=== PATIENT | female | born 1965 | race Caucasian/White ===

== ENCOUNTER 2018-04-03 23:43 | Inpatient (IN) | payer BC, OTHER ==
[2018-04-04] MEDS ORDERED: BISACODYL (EC) 5 MG TAB PO (01:00)
[2018-04-04] MEDS ORDERED: NITROGLYCERIN 50 MG/D5W (PMX) 250 ML IV (01:30)
[2018-04-04] MEDS ORDERED: HEPARIN 1000 UNITS/ML 10 ML INJ IV ×3 (01:30→14:00)
[2018-04-04] MEDS: ONDANSETRON 4 MG INJ IV ×3 (01:43→19:35)
[2018-04-04 02:19] LABS: ADD MAN DIFF? NO
[2018-04-04] MEDS ORDERED: HEPARIN 25000 UNITS/250 ML 250 ML (02:21)
[2018-04-04 02:22] LABS: BASOPHILS % 0.3 % (0.0-2.0); EOSINOPHILS % 0.2 % (0.0-7.0); HEMATOCRIT 42.7 % (37.0-47.0); HEMOGLOBIN 14.2 g/dl (12.0-16.0); IMMATURE GRANS #M 0.03 10^3/ul; IMMATURE GRANS % (M) 0.3 %; LYMPHOCYTES # 1.5 10^3/ul (0.8-2.9); LYMPHOCYTES % 15.2 % (15.0-51.0); MEAN CORPUSCULAR HEMOGLOBIN 31.7 pg (29.0-33.0); MEAN CORPUSCULAR HGB CONC 33.3 g/dl (32.0-37.0); MEAN CORPUSCULAR VOLUME 95.3 fl (82.0-101.0); MEAN PLATELET VOLUME 10.2 fl (7.4-10.4); MONOCYTE # 0.6 10^3/ul (0.3-0.9); MONOCYTES % 6.1 % (0.0-11.0); NEUTROPHIL # 7.8 10^3/ul (1.6-7.5); NEUTROPHILS % 77.9 % (39.0-77.0); PLATELET COUNT 267 10^3/UL (140-415); RED BLOOD COUNT 4.48 10^6/ul (4.20-5.40); RED CELL DISTRIBUTION WIDTH 13.1 % (11.5-14.5)
[2018-04-04] MEDS: HEPARIN 25000 UNITS/250 ML 250 ML IV ×2 (02:32→19:00)
[2018-04-04 02:41] LABS: PARTIAL THROMBOPLASTIN TIME 27.5 Sec (25.0-35.0)
[2018-04-04 02:41] LABS: INR 0.93; PROTIME 12.5 Sec (11.9-14.9)
[2018-04-04 03:01] LABS: ALANINE AMINOTRANSFERASE 35 IU/L (13-69); ALBUMIN 4.6 g/dl (3.3-4.9); ALBUMIN/GLOBULIN RATIO 1.35; ALKALINE PHOSPHATASE 79 IU/L (42-121); ANION GAP 16 (8-16); ASPARTATE AMINO TRANSFERASE 77 IU/L (15-46); BILIRUBIN,INDIRECT 0.3 mg/dl (0-1.1); BILIRUBIN,TOTAL 0.3 mg/dl (0.2-1.3); BLOOD UREA NITROGEN 9 mg/dl (7-20); CALCIUM 9.7 mg/dl (8.4-10.2); CARBON DIOXIDE 26 mmol/L (21-31); CHLORIDE 104 mmol/L (97-110); CREATININE 0.49 mg/dl (0.44-1.00); GLUCOSE 130 mg/dl (70-220); MAGNESIUM 1.8 mg/dl (1.7-2.5); POTASSIUM 3.3 mmol/L (3.5-5.1); SODIUM 143 mmol/L (135-144)
[2018-04-04] MEDS: NITROGLYCERIN (SL) 0.4 MG TAB SL ×2 (03:43→03:51)
[2018-04-04] MEDS: POTASSIUM CHLORIDE 50 ML IVPB (03:48)
[2018-04-04] MEDS: POTASSIUM CHLORIDE (SR) 20 MEQ TAB PO ×2 (04:42→11:39)
[2018-04-04] MEDS: PANTOPRAZOLE 40 MG INJ IV (05:41)
[2018-04-04] MEDS ORDERED: IODIXANOL LOCM 100 ML BTL ×2 (07:45→08:01)
[2018-04-04] MEDS ORDERED: HEPARIN 1000 UNITS/ML 10 ML INJ (07:45)
[2018-04-04] MEDS ORDERED: LIDOCAINE 1% (MDV) 20 ML INJ (07:45)
[2018-04-04] MEDS ORDERED: FENTAnyl 50 MCG/ML VIAL (07:45)
[2018-04-04] MEDS ORDERED: MIDAZOLAM 1 MG/ML 2 ML INJ (07:46)
[2018-04-04] MEDS ORDERED: NITROGLYCERIN (IC) 100 MCG/ML INJ (07:46)
[2018-04-04] MEDS ORDERED: VERAPAMIL 5 MG INJ (07:46)
[2018-04-04] MEDS ORDERED: BIVALIRUDIN 250MG /NS 50 ML 50 ML IVPB (08:06)
[2018-04-04] MEDS ORDERED: ASPIRIN 325 MG TAB (08:07)
[2018-04-04] MEDS ORDERED: TICAGRELOR 90 MG TABLET (08:07)
[2018-04-04] MEDS ORDERED: NITROGLYCERIN 2% 1 GM OINT PKT TD (09:00)
[2018-04-04] MEDS: METOPROLOL (XL) 25 MG TAB PO ×2 (09:00→17:22)
[2018-04-04] MEDS ORDERED: ASPIRIN (EC) 325 MG TAB PO (09:00)
[2018-04-04] MEDS: HOLD all METFORMIN and METFORMIN CONTAINING medications for 48 hours post procedure. Chec XX (09:00)
[2018-04-04] MEDS ORDERED: HYDROCODONE/APAP (10/325) TAB PO (09:30)
[2018-04-04] MEDS: AMLODIPINE 10 MG TAB PO (09:55)
[2018-04-04] MEDS: BENAZEPRIL 10 MG TAB PO (09:55)
[2018-04-04] MEDS: SOD CHLORIDE 0.9% 1,000 ML IV (09:56)
[2018-04-04] MEDS: ISOSORBIDE MONONITRATE(SR)60 MG TAB PO (09:56)
[2018-04-04] MEDS: morphine 2 MG INJ IV ×2 (10:21→19:35)
[2018-04-04 11:19] LABS: ADD MAN DIFF? NO
[2018-04-04 11:21] LABS: BASOPHILS % 0.2 % (0.0-2.0); EOSINOPHILS % 0.1 % (0.0-7.0); HEMATOCRIT 42.2 % (37.0-47.0); HEMOGLOBIN 14.1 g/dl (12.0-16.0); IMMATURE GRANS #M 0.02 10^3/ul; IMMATURE GRANS % (M) 0.2 %; LYMPHOCYTES # 1.3 10^3/ul (0.8-2.9); LYMPHOCYTES % 14.6 % (15.0-51.0); MEAN CORPUSCULAR HEMOGLOBIN 31.4 pg (29.0-33.0); MEAN CORPUSCULAR HGB CONC 33.4 g/dl (32.0-37.0); MEAN PLATELET VOLUME 10.1 fl (7.4-10.4); MONOCYTE # 0.6 10^3/ul (0.3-0.9); MONOCYTES % 6.4 % (0.0-11.0); NEUTROPHIL # 6.7 10^3/ul (1.6-7.5); NEUTROPHILS % 78.5 % (39.0-77.0); PLATELET COUNT 249 10^3/UL (140-415); RED BLOOD COUNT 4.49 10^6/ul (4.20-5.40); RED CELL DISTRIBUTION WIDTH 13.2 % (11.5-14.5)
[2018-04-04 11:21] LABS: WHITE BLOOD COUNT 8.6 10^3/ul (4.8-10.8)
[2018-04-04 11:49] LABS: INR 0.95; PROTIME 12.8 Sec (11.9-14.9)
[2018-04-04 11:50] LABS: PARTIAL THROMBOPLASTIN TIME 32.9 Sec (25.0-35.0)
[2018-04-04] MEDS: HEPARIN 1000 UNITS/ML 10 ML INJ IV (14:00)
[2018-04-04] MEDS: CEPHALEXIN 500 MG CAP PO ×2 (14:57→21:13)
[2018-04-04 18:11] LABS: INR 0.94; PROTIME 12.7 Sec (11.9-14.9)
[2018-04-04] MEDS: ATORVASTATIN 20 MG TAB PO (21:14)
[2018-04-05 01:20] LABS: PARTIAL THROMBOPLASTIN TIME 51.1 Sec (25.0-35.0)
[2018-04-05] MEDS: ACETAMINOPHEN 325 MG TAB PO ×2 (04:47→11:33)
[2018-04-05 05:15] LABS: ADD MAN DIFF? NO
[2018-04-05] MEDS: PANTOPRAZOLE 40 MG INJ IV (05:20)
[2018-04-05] MEDS: CEPHALEXIN 500 MG CAP PO ×3 (05:22→20:48)
[2018-04-05 05:23] LABS: WHITE BLOOD COUNT 8.8 10^3/ul (4.8-10.8)
[2018-04-05 05:23] LABS: BASOPHILS % 0.3 % (0.0-2.0); EOSINOPHILS % 0.2 % (0.0-7.0); HEMATOCRIT 39.9 % (37.0-47.0); HEMOGLOBIN 13.3 g/dl (12.0-16.0); IMMATURE GRANS #M 0.01 10^3/ul; IMMATURE GRANS % (M) 0.1 %; LYMPHOCYTES % 23.3 % (15.0-51.0); MEAN CORPUSCULAR HGB CONC 33.3 g/dl (32.0-37.0); MEAN CORPUSCULAR VOLUME 96.1 fl (82.0-101.0); MEAN PLATELET VOLUME 10.3 fl (7.4-10.4); MONOCYTE # 0.7 10^3/ul (0.3-0.9); MONOCYTES % 7.5 % (0.0-11.0); NEUTROPHILS % 68.6 % (39.0-77.0); PLATELET COUNT 243 10^3/UL (140-415); RED BLOOD COUNT 4.15 10^6/ul (4.20-5.40); RED CELL DISTRIBUTION WIDTH 13.3 % (11.5-14.5)
[2018-04-05 05:39] LABS: ALANINE AMINOTRANSFERASE 30 IU/L (13-69); ALBUMIN/GLOBULIN RATIO 1.33; ALKALINE PHOSPHATASE 77 IU/L (42-121); ANION GAP 13 (8-16); ASPARTATE AMINO TRANSFERASE 60 IU/L (15-46); BILIRUBIN,INDIRECT 0.4 mg/dl (0-1.1); BILIRUBIN,TOTAL 0.4 mg/dl (0.2-1.3); BLOOD UREA NITROGEN 8 mg/dl (7-20); CALCIUM 9.4 mg/dl (8.4-10.2); CARBON DIOXIDE 25 mmol/L (21-31); CHLORIDE 108 mmol/L (97-110); CREATININE 0.52 mg/dl (0.44-1.00); GLUCOSE 115 mg/dl (70-220); POTASSIUM 4.1 mmol/L (3.5-5.1); SODIUM 142 mmol/L (135-144)
[2018-04-05 06:44] LABS: PHOSPHORUS 3.8 mg/dl (2.5-4.9)
[2018-04-05 06:44] LABS: MAGNESIUM 1.9 mg/dl (1.7-2.5)
[2018-04-05] MEDS: HOLD all METFORMIN and METFORMIN CONTAINING medications for 48 hours post procedure. Chec XX (09:00)
[2018-04-05] MEDS: CLOPIDOGREL 75 MG TAB PO (09:00)
[2018-04-05] MEDS: ASPIRIN 81 MG TAB PO (09:00)
[2018-04-05] MEDS: BENAZEPRIL 10 MG TAB PO (09:02)
[2018-04-05] MEDS: AMLODIPINE 10 MG TAB PO (09:02)
[2018-04-05] MEDS: ISOSORBIDE MONONITRATE(SR)60 MG TAB PO ×2 (09:03→16:22)
[2018-04-05] MEDS: METOPROLOL (XL) 25 MG TAB PO (09:03)
[2018-04-05] MEDS: ONDANSETRON 4 MG INJ IV (11:34)
[2018-04-05] MEDS ORDERED: IBUPROFEN 400 MG TAB PO (12:00)
[2018-04-05] MEDS: morphine 2 MG INJ IV ×2 (14:19→20:02)
[2018-04-05] MEDS: NITROGLYCERIN (SL) 0.4 MG TAB SL ×3 (14:26→14:52)
[2018-04-05] MEDS ORDERED: HEPARIN 1000 UNITS/ML 10 ML INJ IV (16:00)
[2018-04-05 16:24] LABS: ADD MAN DIFF? NO
[2018-04-05 16:25] LABS: WHITE BLOOD COUNT 7.5 10^3/ul (4.8-10.8)
[2018-04-05 16:25] LABS: BASOPHILS % 0.4 % (0.0-2.0); EOSINOPHILS % 0.5 % (0.0-7.0); HEMATOCRIT 39.3 % (37.0-47.0); HEMOGLOBIN 13.2 g/dl (12.0-16.0); IMMATURE GRANS #M 0.01 10^3/ul; IMMATURE GRANS % (M) 0.1 %; LYMPHOCYTES # 1.7 10^3/ul (0.8-2.9); LYMPHOCYTES % 22.8 % (15.0-51.0); MEAN CORPUSCULAR HEMOGLOBIN 32.5 pg (29.0-33.0); MEAN CORPUSCULAR HGB CONC 33.6 g/dl (32.0-37.0); MEAN CORPUSCULAR VOLUME 96.8 fl (82.0-101.0); MEAN PLATELET VOLUME 10.2 fl (7.4-10.4); MONOCYTE # 0.7 10^3/ul (0.3-0.9); MONOCYTES % 8.9 % (0.0-11.0); NEUTROPHILS % 67.3 % (39.0-77.0); PLATELET COUNT 233 10^3/UL (140-415); RED BLOOD COUNT 4.06 10^6/ul (4.20-5.40); RED CELL DISTRIBUTION WIDTH 13.2 % (11.5-14.5)
[2018-04-05] MEDS: HEPARIN 1000 UNITS/ML 10 ML INJ IV (16:35)
[2018-04-05] MEDS: HEPARIN 25000 UNITS/250 ML 250 ML IV (16:37)
[2018-04-05 16:44] LABS: INR 0.93; PROTIME 12.6 Sec (11.9-14.9)
[2018-04-05 16:45] LABS: PARTIAL THROMBOPLASTIN TIME 23.5 Sec (25.0-35.0)
[2018-04-05 23:46] LABS: PARTIAL THROMBOPLASTIN TIME 56.2 Sec (25.0-35.0)
[2018-04-06] MEDS: morphine 2 MG INJ IV ×4 (00:08→13:24)
[2018-04-06] MEDS: PANTOPRAZOLE 40 MG INJ IV (05:10)
[2018-04-06] MEDS: CEPHALEXIN 500 MG CAP PO ×3 (05:10→21:09)
[2018-04-06 05:32] LABS: ADD MAN DIFF? NO
[2018-04-06 05:42] LABS: BASOPHILS % 0.4 % (0.0-2.0); EOSINOPHILS # 0.1 10^3/ul (0.0-0.5); EOSINOPHILS % 1.2 % (0.0-7.0); HEMATOCRIT 39.8 % (37.0-47.0); HEMOGLOBIN 12.8 g/dl (12.0-16.0); IMMATURE GRANS #M 0.02 10^3/ul; IMMATURE GRANS % (M) 0.3 %; LYMPHOCYTES # 2.4 10^3/ul (0.8-2.9); LYMPHOCYTES % 34.6 % (15.0-51.0); MEAN CORPUSCULAR HEMOGLOBIN 31.4 pg (29.0-33.0); MEAN CORPUSCULAR HGB CONC 32.2 g/dl (32.0-37.0); MEAN CORPUSCULAR VOLUME 97.8 fl (82.0-101.0); MEAN PLATELET VOLUME 10.5 fl (7.4-10.4); MONOCYTE # 0.7 10^3/ul (0.3-0.9); MONOCYTES % 9.6 % (0.0-11.0); NEUTROPHIL # 3.7 10^3/ul (1.6-7.5); NEUTROPHILS % 53.9 % (39.0-77.0); PLATELET COUNT 226 10^3/UL (140-415); RED BLOOD COUNT 4.07 10^6/ul (4.20-5.40); RED CELL DISTRIBUTION WIDTH 13.4 % (11.5-14.5)
[2018-04-06 05:42] LABS: WHITE BLOOD COUNT 6.9 10^3/ul (4.8-10.8)
[2018-04-06 06:02] LABS: PARTIAL THROMBOPLASTIN TIME 51.5 Sec (25.0-35.0)
[2018-04-06 06:04] LABS: ANION GAP 11 (8-16); BLOOD UREA NITROGEN 10 mg/dl (7-20); CALCIUM 9.4 mg/dl (8.4-10.2); CARBON DIOXIDE 26 mmol/L (21-31); CHLORIDE 107 mmol/L (97-110); CREATININE 0.54 mg/dl (0.44-1.00); GLUCOSE 106 mg/dl (70-220); SODIUM 140 mmol/L (135-144)
[2018-04-06] MEDS: ONDANSETRON 4 MG INJ IV (09:15)
[2018-04-06] MEDS: BENAZEPRIL 10 MG TAB PO (09:16)
[2018-04-06] MEDS: METOPROLOL (XL) 25 MG TAB PO (09:16)
[2018-04-06] MEDS: AMLODIPINE 10 MG TAB PO (09:16)
[2018-04-06] MEDS: CLOPIDOGREL 75 MG TAB PO (09:16)
[2018-04-06] MEDS: ASPIRIN 81 MG TAB PO (09:16)
[2018-04-06] MEDS: ISOSORBIDE MONONITRATE(SR)60 MG TAB PO (09:17)
[2018-04-06] MEDS: LORAZEPAM 2 MG INJ IV ×2 (12:02→21:16)
[2018-04-06 12:39] LABS: PARTIAL THROMBOPLASTIN TIME 49.8 Sec (25.0-35.0)
[2018-04-06] MEDS: traMADol 50 MG TAB PO (16:41)
[2018-04-06] MEDS: HEPARIN 25000 UNITS/250 ML 250 ML IV ×2 (19:29→21:24)
[2018-04-06 20:27] LABS: PARTIAL THROMBOPLASTIN TIME 87.7 Sec (25.0-35.0)
[2018-04-07] MEDS: PANTOPRAZOLE 40 MG INJ IV (05:18)
[2018-04-07] MEDS: CEPHALEXIN 500 MG CAP PO ×3 (05:18→21:40)
[2018-04-07 06:09] LABS: ANION GAP 12 (8-16); BLOOD UREA NITROGEN 9 mg/dl (7-20); CALCIUM 9.2 mg/dl (8.4-10.2); CARBON DIOXIDE 26 mmol/L (21-31); CHLORIDE 105 mmol/L (97-110); CREATININE 0.57 mg/dl (0.44-1.00); GLUCOSE 97 mg/dl (70-220); POTASSIUM 3.9 mmol/L (3.5-5.1); SODIUM 139 mmol/L (135-144)
[2018-04-07] MEDS: ONDANSETRON 4 MG INJ IV ×2 (06:38→14:59)
[2018-04-07] MEDS: traMADol 50 MG TAB PO ×3 (06:38→22:03)
[2018-04-07 08:05] LABS: PARTIAL THROMBOPLASTIN TIME 78.5 Sec (25.0-35.0)
[2018-04-07] MEDS: ASPIRIN 81 MG TAB PO (08:18)
[2018-04-07] MEDS: ISOSORBIDE MONONITRATE(SR)60 MG TAB PO (08:19)
[2018-04-07] MEDS: CLOPIDOGREL 75 MG TAB PO (08:19)
[2018-04-07] MEDS: AMLODIPINE 10 MG TAB PO (09:00)
[2018-04-07] MEDS: BENAZEPRIL 10 MG TAB PO (09:00)
[2018-04-07] MEDS: METOPROLOL (XL) 25 MG TAB PO (09:00)
[2018-04-07] MEDS: ACETAMINOPHEN 325 MG TAB PO (11:00)
[2018-04-07 14:23] LABS: PARTIAL THROMBOPLASTIN TIME 58.5 Sec (25.0-35.0)
[2018-04-07] MEDS: morphine 2 MG INJ IV (15:00)
[2018-04-07] MEDS: NITROGLYCERIN (SL) 0.4 MG TAB SL (20:21)
[2018-04-07] MEDS: LORAZEPAM 2 MG INJ IV (22:11)
[2018-04-08] MEDS: LORAZEPAM 2 MG INJ IV ×4 (03:24→23:33)
[2018-04-08] MEDS: PANTOPRAZOLE 40 MG INJ IV (05:12)
[2018-04-08] MEDS: CEPHALEXIN 500 MG CAP PO ×3 (05:12→22:12)
[2018-04-08] MEDS: CLOPIDOGREL 75 MG TAB PO (08:50)
[2018-04-08] MEDS: ASPIRIN 81 MG TAB PO (08:50)
[2018-04-08] MEDS: METOPROLOL (XL) 25 MG TAB PO (08:51)
[2018-04-08] MEDS: ISOSORBIDE MONONITRATE(SR)60 MG TAB PO (08:51)
[2018-04-08] MEDS: traMADol 50 MG TAB PO (08:52)
[2018-04-08] MEDS: ONDANSETRON 4 MG INJ IV ×2 (08:52→15:05)
[2018-04-08] MEDS: ACETAMINOPHEN 325 MG TAB PO (16:39)
[2018-04-08] MEDS: morphine 2 MG INJ IV (21:51)
[2018-04-09] MEDS: PANTOPRAZOLE 40 MG INJ IV (05:13)
[2018-04-09] MEDS: CEPHALEXIN 500 MG CAP PO ×3 (05:13→20:42)
[2018-04-09] MEDS: CLOPIDOGREL 75 MG TAB PO (08:58)
[2018-04-09] MEDS: ISOSORBIDE MONONITRATE(SR)60 MG TAB PO (08:58)
[2018-04-09] MEDS: METOPROLOL (XL) 25 MG TAB PO (08:58)
[2018-04-09] MEDS: ASPIRIN 81 MG TAB PO (08:58)
[2018-04-09] MEDS: LORAZEPAM 2 MG INJ IV ×3 (08:59→21:39)
[2018-04-09] MEDS: morphine LIQ (10 MG/5 ML) CUP PO ×3 (11:50→20:43)
[2018-04-10] MEDS: PANTOPRAZOLE 40 MG INJ IV (05:53)
[2018-04-10] MEDS: CEPHALEXIN 500 MG CAP PO ×3 (05:53→21:39)
[2018-04-10] MEDS: CLOPIDOGREL 75 MG TAB PO (09:43)
[2018-04-10] MEDS: ASPIRIN 81 MG TAB PO (09:43)
[2018-04-10] MEDS: ISOSORBIDE MONONITRATE(SR)60 MG TAB PO (09:44)
[2018-04-10] MEDS: morphine LIQ (10 MG/5 ML) CUP PO (09:44)
[2018-04-10] MEDS: METOPROLOL (XL) 25 MG TAB PO (09:44)
[2018-04-10] MEDS: LORAZEPAM 2 MG INJ IV ×3 (10:44→22:46)
[2018-04-10 18:13] LABS: CHOLESTEROL 116 mg/dl (100-200)
[2018-04-10 18:13] LABS: HDL CHOLESTEROL 29 mg/dl (37-92); LDL CHOLESTEROL,CALCULATED 51 mg/dl; TRIGLYCERIDES 178 mg/dl (0-149)
[2018-04-10] MEDS: ONDANSETRON 4 MG INJ IV (19:39)
[2018-04-11] MEDS: CEPHALEXIN 500 MG CAP PO ×2 (05:47→14:50)
[2018-04-11] MEDS: PANTOPRAZOLE 40 MG INJ IV (05:47)
[2018-04-11] MEDS: CLOPIDOGREL 75 MG TAB PO (09:43)
[2018-04-11] MEDS: METOPROLOL (XL) 25 MG TAB PO (09:44)
[2018-04-11] MEDS: ASPIRIN 81 MG TAB PO (09:44)
[2018-04-11] MEDS: ISOSORBIDE MONONITRATE(SR)60 MG TAB PO (09:44)
[2018-04-11] MEDS: LORAZEPAM 2 MG INJ IV (10:22)
[2018-04-11] MEDS: ACETAMINOPHEN 325 MG TAB PO (14:54)
[2018-04-11] MEDS: ONDANSETRON 4 MG INJ IV (15:37)
== END 2018-04-11 16:28 | disposition home or self-care (01) | DRG 280 ==
LOC: ICU 04-04 00:13 → TEL 04-08 14:53 → ICU 23:43 → TEL 04-08 21:04
PROC: 4A023N7 Measurement of Cardiac Sampling and Pressure, Left Heart, Percutaneous Approach (ICD-10-PCS; principal; 2018-04-04 07:30)
PROC: B211YZZ Fluoroscopy of Multiple Coronary Arteries using Other Contrast (ICD-10-PCS; 2018-04-04 07:30)
DX: I21.4 Non-ST elevation (NSTEMI) myocardial infarction (principal); I25.42 Coronary artery dissection; T81.31XA Disruption of external operation (surgical) wound, not elsewhere classified, initial encounter; I25.82 Chronic total occlusion of coronary artery; I10 Essential (primary) hypertension; F41.9 Anxiety disorder, unspecified; Z87.891 Personal history of nicotine dependence
CPT/HCPCS: 80048; 80053; 80061; 83735; 84100; 84484; 85025; 85610; 85730; 87070; 87081; 93005; 93306; 93308; 93454

== ENCOUNTER 2019-03-01 11:51 | Emergency (ER) | payer BC ==
[2019-03-01 12:33] LABS: ADD MAN DIFF? NO
[2019-03-01 12:35] LABS: WHITE BLOOD COUNT 10.8 10^3/ul (4.8-10.8)
[2019-03-01 12:35] LABS: BASOPHIL # 0.1 10^3/ul (0.0-0.1); BASOPHILS % 0.5 % (0.0-2.0); EOSINOPHILS % 0.3 % (0.0-7.0); HEMATOCRIT 41.5 % (37.0-47.0); HEMOGLOBIN 14.1 g/dl (12.0-16.0); LYMPHOCYTES # 1.1 10^3/ul (0.8-2.9); LYMPHOCYTES % 10.5 % (15.0-51.0); MEAN CORPUSCULAR HEMOGLOBIN 31.5 pg (29.0-33.0); MEAN CORPUSCULAR VOLUME 92.6 fl (82.0-101.0); MEAN PLATELET VOLUME 10.3 fl (7.4-10.4); MONOCYTE # 0.9 10^3/ul (0.3-0.9); MONOCYTES % 8.7 % (0.0-11.0); NEUTROPHIL # 8.6 10^3/ul (1.6-7.5); NEUTROPHILS % 79.6 % (39.0-77.0); PLATELET COUNT 116 10^3/UL (140-415); RED BLOOD COUNT 4.48 10^6/ul (4.20-5.40); RED CELL DISTRIBUTION WIDTH 13.1 % (11.5-14.5)
[2019-03-01 12:55] LABS: INR 0.98; PROTIME 13.1 Sec (11.9-14.9)
[2019-03-01] MEDS: SOD CHLORIDE 0.9% 1,000 ML IV (13:23)
[2019-03-01] MEDS: DIAZEPAM 5 MG/ML SYG IV (13:23)
[2019-03-01] MEDS: METOCLOPRAMIDE 10 MG INJ IV (13:23)
[2019-03-01 13:58] LABS: Estimated GFR > 60 mL/min (>60)
[2019-03-01 14:01] LABS: ANION GAP 9 (5-13)
[2019-03-01 14:19] LABS: BLOOD UREA NITROGEN 8 mg/dl (7-20); CARBON DIOXIDE 29 mmol/L (21-31); CHLORIDE 106 mmol/L (97-110); CREATININE 0.46 mg/dl (0.44-1.00); GLUCOSE 127 mg/dl (70-220); SODIUM 144 mmol/L (135-144)
[2019-03-01 14:20] LABS: B-TYPE NATRIURETIC PEPTIDE 90 PG/ML (0-125); CALCIUM 8.9 mg/dl (8.4-10.2); TROPONIN-I < 0.012 ng/ml (0.000-0.120)
[2019-03-01] MEDS: IOHEXOL 100 ML (14:26)
[2019-03-01] MEDS: SOD CHLORIDE 0.9% 100 ML (14:26)
[2019-03-01] MEDS: FAMOTIDINE 20 MG INJ IV (15:22)
[2019-03-01] MEDS: LIDOCAINE/MYLANTA 40 ML BTL PO (15:26)
[2019-03-01] MEDS: BELLADONNA/PHENOBARBITAL TAB PO (15:26)
[2019-03-01 16:04] LABS: TROPONIN-I < 0.012 ng/ml (0.000-0.120)
== END 2019-03-01 17:20 | disposition home or self-care (01) ==
LOC: E/R 11:51
DX: K20.9 Esophagitis, unspecified (principal); R07.9 Chest pain, unspecified; D69.6 Thrombocytopenia, unspecified; I10 Essential (primary) hypertension; Z79.82 Long term (current) use of aspirin; Z87.891 Personal history of nicotine dependence
CPT/HCPCS: 36415; 71045; 71275; 80048; 83880; 84484; 85025; 85610; 93005; 96374; 96375; 99285-25